=== PATIENT | female | born 1970 | race Caucasian/White ===

== ENCOUNTER 2018-09-08 13:30 | Emergency (ER) | payer MEDICAID ==
[~2018-09-08] VITALS: Ht 162.6 cm; Wt 64.4 kg
[2018-09-08 13:42] VITALS: BP 135/81
== END 2018-09-08 16:47 | disposition left against medical advice (07) ==
LOC: MED 13:30
DX: R19.5 Other fecal abnormalities (principal); Z53.21 Procedure and treatment not carried out due to patient leaving prior to being seen by health care provider